=== PATIENT | female | born 1990 | race Caucasian/White ===

== ENCOUNTER 2019-02-21 12:48 | Emergency (ER) | payer BC ==
[2019-02-21 16:44] LABS: ABS Lymphocytes 1.3 10^3/ul (1.0-4.8); ABS Monocytes 0.2 10^3/ul (0-0.8); Eosinophil % 0.1 %; Hematocrit 42 % (35-47); Hemoglobin 14.1 g/dL (12.0-16.0); Lymphocyte % 23.2 %; Mean Corpuscular HGB Conc 34 g/dL (31-36); Mean Corpuscular Hemoglobin 30 pg (27-31); Mean Corpuscular Volume 90 fL (80-97); Mean Platelet Volume 8.6 fL (7.4-10.4); Platelet Count 174 10^3/uL (150-450); Red Blood Count 4.64 10^6 /uL (3.70-4.87); Red Cell Distribution Width 13 % (10-15); White Blood Count 5.5 10^3/uL (3.5-10.8)
--- NOTE | 2019-02-21 16:59 | ED ---
Abdominal Pain/Female - HPI Summary HPI Summary: Patient is a 28 y/o F presenting to [facility] presenting with complaints of intermittent and sharp RLQ pain for the past few days. Pain was worse today . She notes that when she stood up, she experienced an exacerbation of the pain and became light-headed. She denies N/V, fever, dysuria, hematuria, flank pain. Pain is characterized as dissimilar to a muscle strain. No recent fall or injuries noted. She denies past similar episodes of pain. Patient also notes that the episodes of pain have been longer more recently. Currently, pain is characterized as a dull sensation. No Hx of ovarian cyst or torsion noted. LNMP was a few days ago. No PMHx, no daily medications, no allergies are noted. Home medications and allergies are reviewed. - History of Current Complaint Chief Complaint: EDAbdPain Stated Complaint: LOWER ABD PAIN Time Seen by Provider: 02/21/19 13:04 Hx Obtained From: Patient Onset/Duration: Lasting Days, Still Present Timing: Intermittent Episode Lasting Severity Currently: Moderate Pain Intensity: 5 Pain Scale Used: 0-10 Numeric Location: Discrete At: RLQ Character: Sharp, Dull - currently Aggravating Factor(s): Other: - standing up Associated Signs and Symptoms: Positive: Other: - negative - flank pain, recent falls or injuries; positive - light-headedness. Negative: Fever, Urinary Symptoms, Nausea, Vomiting Allergies/Adverse Reactions: Allergies Allergy/AdvReac Type Severity Reaction Status Date / Time No Known Allergies Allergy Verified 02/21/19 12:53 Home Medications: Home Medications Copper (Iud) [Paragard IUD] 1 unit INTRAUTERI ONCE 02/21/19 [History Confirmed 02/21/19] PMH/Surg Hx/FS Hx/Imm Hx Sensory History: Denies: Hx Legally Blind, Hx Deafness Opthamlomology History: Denies: Hx Legally Blind EENT History: Denies: Hx Deafness - Immunization History Date of Influenza Vaccine: none Infectious Disease History: No Infectious Disease History: Denies: Traveled Outside the [place] in Last 30 Days - Family History Known Family History: Negative: Diabetes - Social History Alcohol Use: Rare Substance Use Type: Reports: None Smoking Status (MU): Never Smoked Tobacco Review of Systems Negative: Fever Positive: Abdominal Pain. Negative: Vomiting, Nausea Negative: dysuria, flank pain, hematuria Musculoskeletal: Other - negative - recent falls or injuries Neurological: Other - positive - light-headedness All Other Systems Reviewed And Are Negative: Yes Physical Exam - Summary Physical Exam Summary: Constitutional: Well-developed, Well-nourished, Alert. (-) Distressed Skin: Warm, Dry HENT: Normocephalic; Atraumatic Eyes: Conjunctiva normal Neck: Musculoskeletal ROM normal neck. (-) JVD, (-) Stridor, (-) Tracheal deviation Cardio: Rhythm regular, rate normal, Heart sounds normal; Intact distal pulses; The pedal pulses are 2+ and symmetric. Radial pulses are 2+ and symmetric. (-) Murmur Pulmonary/Chest wall: Effort normal. (-) Respiratory distress, (-) Wheezes, (-) Rales Abd: Soft, (-) tenderness, (-) Distension, (-) Guarding, (-) Rebound Musculoskeletal: (-) Edema Lymph: (-) Cervical adenopathy Neuro: Alert, Oriented x3 Psych: Mood and affect Normal Triage Information Reviewed: Yes Vital Signs On Initial Exam: Initial Vitals Temp Pulse Resp BP Pulse Ox 98.4 F 113 14 103/70 98 02/21/19 12:50 02/21/19 12:50 02/21/19 12:50 02/21/19 12:50 02/21/19 12:50 Vital Signs Reviewed: Yes Procedures - Sedation Patient Received Moderate/Deep Sedation with Procedure: No Diagnostics - Vital Signs Vital Signs Temp Pulse Resp BP Pulse Ox 02/21/19 16:33 98.3 F 91 16 108/51 100 02/21/19 14:40 98.7 F 101 16 119/70 97 02/21/19 12:50 98.4 F 113 14 103/70 98 - Laboratory Lab Results: Lab Results 02/21/19 Range/Units 16:29 WBC 5.5 (3.5-10.8) 10^3/uL RBC 4.64 (3.70-4.87) 10^6 /uL Hgb 14.1 (12.0-16.0) g/dL Hct 42 (35-47) % MCV 90 (80-97) fL MCH 30 (27-31) pg MCHC 34 (31-36) g/dL RDW 13 (10-15) % Plt Count 174 (150-450) 10^3/uL MPV 8.6 (7.4-10.4) fL Neut % (Auto) 72.2 % Lymph % (Auto) 23.2 % Saunders % (Auto) 3.8 % Eos % (Auto) 0.1 % Baso % (Auto) 0.7 % Absolute Neuts (auto) 4.0 (1.5-7.7) 10^3/ul Absolute Lymphs (auto) 1.3 (1.0-4.8) 10^3/ul Absolute Monos (auto) 0.2 (0-0.8) 10^3/ul Absolute Eos (auto) 0.0 (0-0.6) 10^3/ul Absolute Basos (auto) 0.0 (0-0.2) 10^3/ul Absolute Nucleated RBC 0.0 10^3/ul Nucleated RBC % 0.0 Result Diagrams: 02/21/19 16:29 02/21/19 16:29 Lab Statement: Any lab studies that have been ordered have been reviewed, and results considered in the medical decision making process. - Ultrasound PELVIC/TRANSVAG US Ultrasound Interpretation Completed By: Radiologist Summary of Ultrasound Findings: IMPRESSION: Normal pelvic ultrasound examination. THIS REPORT WAS REVIEWED BY ED PHYSICIAN. APPENDIX US Ultrasound Interpretation Completed By: Radiologist Summary of Ultrasound Findings: IMPRESSION: Nonvisualization of the appendix. THIS REPORT WAS REVIEWED. Abdominal Pain Fem Course/Dx - Course Course Of Treatment: Patient is a 28 y/o F presenting to [facility] presenting with complaints of intermittent and sharp RLQ pain for the past few days. Pain was worse today 02/21/19. She notes that when she stood up, she experienced an exacerbation of the pain and became light-headed. She denies N/V, fever, dysuria , hematuria, flank pain. Pain is characterized as dissimilar to a muscle strain. No recent fall or injuries noted. She denies past similar episodes of pain. Patient also notes that the episodes of pain have been longer more recently. Currently, pain is characterized as a dull sensation. No Hx of ovarian cyst or torsion noted. LNMP was a few days ago. No PMHx, no daily medications, no allergies are noted. Physical exam is unremarkable. Bloodwork was within normal limits. UA showed trace ketones and leukocyte esterase. PELVIC/TRANSVAG US IMPRESSION: Normal pelvic ultrasound examination. APPENDIX US IMPRESSION: Nonvisualization of the appendix. Patient was discharged to home with PCP follow up. - Diagnoses Provider Diagnoses: Abdominal pain Discharge ED - Sign-Out/Discharge Documenting (check all that apply): Patient Departure - discharge - Discharge Plan Condition: Stable Disposition: HOME Patient Education Materials: Acute Abdominal Pain (ED) Referrals: Shraddha Webber MD [Primary Care Provider] - 3 Days Additional Instructions: PLEASE RETURN TO ED FOR ANY NEW OR WORSENING SYMPTOMS. PLEASE FOLLOW UP WITH YOUR PRIMARY CARE PHYSICIAN WITHIN THREE DAYS. - Attestation Statements Document Initiated by Scribe: Yes Documenting Scribe: KAREN BETTENCOURT Provider For Whom Scribe is Documenting (Include Credential): SKIP RODAS DO Scribe Attestation: KAREN Gandara scribed for SKIP RDOAS DO on 02/21/19 at 1908. Status of Scribe Document: Ready
[2019-02-21 17:02] LABS: HCG Pregnancy < 0.60 mIU/mL
[2019-02-21 17:03] LABS: ALT 31 U/L (7-52); AST 18 U/L (13-39); Albumin 4.9 g/dL (3.2-5.2); Alkaline Phosphatase 42 U/L (34-104); Anion Gap 8 mmol/L (2-11); BUN/Creatinine Ratio 14.8 (8-20); Blood Urea Nitrogen 9 mg/dL (6-24); CO2 Carbon Dioxide 27 mmol/L (22-32); Calcium 9.7 mg/dL (8.6-10.3); Chloride 106 mmol/L (101-111); EGFR African American 141.3 (>60); EGFR Non-African American 116.8 (>60); Globulin 2.4 g/dL (2-4); Glucose 97 mg/dL (70-100); Potassium 3.9 mmol/L (3.5-5.0); Sodium 141 mmol/L (135-145); Total Protein 7.3 g/dL (6.4-8.9)
[2019-02-21 18:38] LABS: Urine Appearance Clear; Urine Bilirubin Negative (Negative); Urine Blood Negative (Negative); Urine Color Yellow; Urine Glucose Negative (Negative); Urine Ketones Trace (Negative); Urine Nitrite Negative (Negative); Urine Protein Negative (Negative); Urine Specific Gravity 1.008 (1.010-1.030); Urine Urobilinogen Negative (Negative)
[2019-02-21 18:49] LABS: Urine Bacteria 1+ (Absent); Urine Red Blood Cell Trace(0-2/hpf) (Absent); Urine Squamous Epithelial Cell Present (Absent); Urine White Blood Cell Trace(0-5/hpf) (Absent)
[2019-02-21 19:15] VITALS: BP 116/71
== END 2019-02-21 19:00 | disposition home or self-care (01) ==
LOC: ED 12:48
DX: R10.9 Unspecified abdominal pain (principal)
CPT/HCPCS: 36415; 76705; 76830; 76856; 80053; 81003; 81015; 84702; 85025; 87086; 99282